=== PATIENT | female | born 1960 ===

== ENCOUNTER 2017-02-19 19:40 | Emergency (ER) | payer OTHER ==
--- NOTE | 2017-02-19 20:13 | ED ORDER SUMMARY ---
..... Patient: JAYMIE KNOTT OrderSheet [facility] VisitID: [id number] [address] [place] [address] 56y, F Registration Date/Time: 02/19/2017 ORDER SHEET Weight: 113.3 kg (stated) Allergies: Codeine, NSAIDs, Latex GENERAL ORDERS: MEDICATION ORDERS: Benadryl PO 50 mg (NOW) (20:00 02/19/2017 [facility]) (20:09 DDavis R.N.) Imodium PO 2 mg (NOW) (20:00 02/19/2017 [facility]) (20:10 DDavis R.N.) Zofran ODT PO 4 mg (NOW) (20:00 02/19/2017 [facility]) (20:10 DDavis R.N.) IV FLUIDS: ORDER SHEET NOTES: [Electronically signed by Rom Ramos R.N. (20:40 02/19/2017)] [Electronically signed by Vipin Monae DO (20:53 02/19/2017)] [Electronically locked/signed by Rom Ramos R.N. (20:40 02/19/2017)]
--- NOTE | 2017-02-19 20:13 | ED NURSING NOTES ---
Clinical Report - Nurses [facility] [address] [place] [address] 02/19/2017 19:43 Patient: JAYMIE KNOTT TRIAGE Triage time 19:44. Acuity: LEVEL 3. Chief Complaint: POSSIBLE ALLERGIC REACTION. Alert. No acute distress. MAYRA COMA SCORE: [place] Coma Scale: 15- eyes open spontaneously (4); best verbal response- oriented x 4 (5); best motor response- obeys commands (6). --19:51 Rom Ramos R.N. 19:44 02/19/17. BP: 163/82. HR: 98. RR: 19 (regular and unlabored). O2 saturation: 97%. Temp: 97.9 F (oral). Pain level now: 05/01. --19:51 Rom Ramos R.N. Weight: 113.3 kg stated. Height/Length: 60 inches Per Patient. BMI: 48.8. --19:43 Rom Ramos R.N. Medications Vitamin D3 Oral. --19:57 Rom Ramos R.N. Nortriptyline HCl Oral 10 mg, at bedtime. --19:57 Rom Ramos R.N. Gabapentin (PHN) Oral (Tablet 300 mg). --19:58 Rom Ramos R.N. Acyclovir Oral 400 mg. --19:58 Rom Ramos R.N. Ranitidine HCl Oral. --19:58 Rom Ramos R.N. Allergies Codeine. --19:48 Rom Ramos R.N. NSAIDs. --19:48 Rom Ramos R.N. Latex. --19:59 Rom Ramos R.N. The following entry was struck by Rom Ramos R.N., 19:59 (02/19/17) Reason - other(In error, patient is unsure). <<STRICKEN ENTRY-- IV Contrast. --19:49 Rom Ramos R.N. --END STRIKE>>. History Arrived by EMS. Historian: patient. Unaccompanied. This started today. Onset. (1530). ( "flushed face" with diarrhea and dry mouth after having a CT scan with oral contrast at 1500 today. Pt states having diarrhea "for months," but states that it increased today after the CT.). SELF HARM ASSESSMENT: A self harm assessment was performed. The patient answered "no" to the question "Have you recently felt down, depressed, or hopeless?", "Have you noticed less interest or pleasure in doing things?", "Do you have thoughts of harming or killing yourself?", "Are you here because you tried to hurt yourself?", "Have you ever tried to hurt yourself before today?" and "Have you recently had thoughts about harming or killing others?". FALL RISK ASSESSMENT: Fall risk assessment completed. No fall risk identified. Fall risk assessment completed. Fall interventions initiated. Patient placed on stretcher. Side rails up x1. Brakes on Bed in low position. Patient visible from nurses' station. Call light in reach of patient. NUTRITIONAL RISK ASSESSMENT: The nutritional risk assessment revealed no deficiencies. LEARNING NEEDS ASSESSMENT: The learning needs assessment revealed no barriers. FUNCTIONAL ASSESSMENT: Functional assessment performed: independent with the activities of daily living. SKIN INTEGRITY ASSESSMENT: Skin integrity risk assessment completed. No skin integrity risk identified. --19:51 Rom Ramos R.N. SOCIAL HX: Never smoker. No alcohol use or drug use. --19:51 Rom Ramos R.N. PROBLEMS: Hernia. --19:49 Rom Ramos R.N. Herpes Simplex. Herpes Genitalis. Fibromyalgia. Irritable Bowel Syndrome. --19:56 Rom Ramos R.N. Gastroesophageal Reflux. --20:00 Rom Ramos R.N. The following entry was modified by Rom Ramos R.N., 19:56 Reason - pt denies <<STRICKEN ENTRY-- Hypertension. --19:49 Rom Ramos R.N. --END STRIKE>>. ADDITIONAL SURGERIES: Colonoscopy. Esophagogastroduodenoscopy. --19:56 Rom Ramos R.N. Interventions ID and allergy band on patient. To treatment room. --19:51 Rom Ramos R.N. PHYSICAL ASSESSMENT GENERAL / NEURO / PSYCH: Alert. The patient does not appear to be in acute distress. Oriented X 4. HEENT: Mucous membranes are pink. RESPIRATORY: Respirations not labored. CVS: Capillary refill less than 2 seconds. SKIN: Skin is intact, warm and dry. No skin rash. --19:51 Rom Ramos R.N. RESPIRATORY: ( Airway patent and no respiratory distress at this time). --19:52 Rom Ramos R.N. ( Patient has no adverse reaction from medications received at this time. Patient's present at bedside and he states that he is driving the patient home.). GENERAL / NEURO / PSYCH: Alert. The patient does not appear to be in acute distress. Oriented X 4. HEENT: Mucous membranes are pink. RESPIRATORY: Respirations not labored. CVS: Capillary refill less than 2 seconds. --20:39 Rom Ramos R.N. NURSING PROGRESS NOTES Patient gowned. Head of bed elevated. Reassurance given. Two patient identifiers checked. Call light placed in reach. Side rails up x 1. Bed placed in lowest position. Brakes of bed on. Patient ready for evaluation- chart flagged. Patient waiting for evaluation. --19:52 Rom Ramos R.N. 20:09 02/19/2017 Benadryl (DiphenhydrAMINE HCl) PO Capsules 50 mg given. Allergies verified, confirmed 5 rights and sedative warning given to the patient. --20:09 Rom Ramos R.N. 20:10 02/19/2017 Imodium (Loperamide HCl) PO Capsules 2 mg given. Allergies verified and confirmed 5 rights. --20:10 Rom Ramos R.N. 20:10 02/19/2017 Zofran ODT (Ondansetron) PO Oral Disintegrating Tablets 4 mg given. Allergies verified and confirmed 5 rights. --20:10 Rom Ramos R.N. DISPOSITION / DISCHARGE Departure time: 20:39. Condition at departure: stable. No learning barriers present. Discharge instructions provided and reviewed with the patient and spouse. Reviewed warnings. Reviewed medication(s) side effects, precautions and course information. Treatments reviewed. Reviewed referrals for followup. Patient and spouse verbalized understanding. Written instructions provided in Indonesian. The patient was discharged home and accompanied by spouse. She left the Emergency Department ambulatory and via private vehicle. Spouse driving. --20:40 Rom Ramos R.N. 20:39 02/19/17. HR: 90 (regular). RR: 19 (regular and unlabored). O2 saturation: 94% on room air. --20:40 Rom Ramos R.N. Locked/Released at 02/19/2017 20:40 by Rom Ramos R.N.
--- NOTE | 2017-02-19 20:13 | ED CLINICAL REPORT ---
Clinical Report - Physicians/Mid Levels [facility] [address] [place] [address] 02/19/2017 19:43 Patient: JAYMIE KNOTT Time Seen: 19:46. Arrived- By ambulance. Historian- patient and EMS personnel. HISTORY OF PRESENT ILLNESS Chief Complaint: ALLERGIC REACTION. Diarrhea. No skin rash, difficulty breathing, dizziness or fainting episodes. She has not had itching, swelling or trouble swallowing. This started just prior to arrival and is still present. It was gradual in onset and has been waxing/waning. A cause has been identified (Pt had CT with oral and no IV contrast today). The patient was assessed by EMS prior to arrival. No treatment prior to arrival. (Pt had diarrhea episodes following CT abd / pelvis with po contrast that was performed at [facility] this evening. She has longstanding diarrheal episodes which are felt to be secondary to IBS; Has GI specialist with recent scopes and two surgeons and pcp who have been following her for this; CT abd / pelvis with po contrast done today for this). Similar symptoms previously: Many times. Recent medical care: The patient was seen recently in a clinic. REVIEW OF SYSTEMS No eye problems, sore throat, sputum production, fever or headache. No weakness, numbness, chest pain, palpitations or abdominal pain. No vomiting, black stools, urinary frequency, pain with urination or bloody stools. The patient has had a moderate cough (for several weeks). No blood tinged sputum or change in baseline sputum. It has been similar to previous symptoms. She has had diarrhea. This has occurred several times. It has been watery. No bloody diarrhea. She has had mild nausea. All systems otherwise negative, except as recorded above. PAST HISTORY Asthma. Irritable bowel syndrome. Gastroesophageal reflux. Diarrhea (chronic and intermittent - felt to be secondary to IBS; Has GI specialist with recent scopes and two surgeons and pcp who have been following her for this; CT abd / pelvis with po contrast done today for this). Herpes labialis. Obesity. Surgeries: Colonoscopy. Endoscopy. SOCIAL HISTORY Never smoker. No alcohol use or drug use. ADDITIONAL NOTES The nursing notes have been reviewed. PHYSICAL EXAM Vital Signs: 02/19/2017 19:44 BP: 163/82. HR: 98. RR: 19. O2 saturation: 97%. Temp: 97.9 F. Pain level now: 6/10. Appearance: Alert. Oriented X3. No acute distress. Head and Neck: Normal external inspection. Head: No facial angioedema. Eyes: Pupils equal, round and reactive to light. ENT: Pharynx normal. Voice normal. No muffled or hoarse voice or drooling. Neck: Neck supple. CVS: Normal heart rate and rhythm. Heart sounds normal. Respiratory: No respiratory distress. Breath sounds normal. Abdomen: Nontender. No organomegaly. Obese. Skin: Skin warm and dry. Normal skin turgor. No erythema. Extremities: Normal external inspection. Extremities nontender. Skin: Normal skin color. No rash. No urticaria. No urticaria. Neuro: Oriented X 3. No motor deficit. LABS, X-RAYS, AND EKG Pulse Oximetry: 02/19/2017 19:44 O2 saturation: 97%. (FIO2 - room air). Interpretation: normal. PROGRESS AND PROCEDURES Course of Care: Imodium 2 mg PO given. Benadryl 50 mg PO given. Doubt allergy. Pt has chronic diarrhea which was exacerbated by barium po contrast. Extensive work up for this in the past (both recent and remote). Patient/family counseled. Disposition: Discharged. Condition: stable and improved. CLINICAL IMPRESSION Essential hypertension. Morbid obesity (BMI >=40) due to excess calories. INSTRUCTIONS Do not work for three days. Warnings: Further evaluation is necessary. It is very important to follow up with a physician. SEDATIVE MEDICATION: You were given sedative medication during your visit. Do not drive or operate dangerous machinery. GENERAL WARNINGS: Return or contact your physician immediately if your condition worsens or changes unexpectedly, if not improving as expected, or if other problems arise. Your Current Medications: CONTINUE TAKING THE FOLLOWING MEDICATIONS: Acyclovir Oral : 400 mg. Gabapentin (PHN) Oral : Tablet 300 mg. Nortriptyline HCl Oral : 10 mg at bedtime. Ranitidine HCl Oral. Vitamin D3 Oral. OTC Medications: Imodium (available over the counter): take according to label instructions. Follow-up: Follow up with your doctor in two days. Screening today revealed the patient's blood pressure to be in the hypertensive range. The patient should follow up with a primary care provider for blood pressure management. (Electronically signed by Vipin Monae DO 02/19/2017 20:53)
--- NOTE | 2017-02-19 20:13 | ED ORDER SUMMARY ---
..... Patient: JAYMIE KNOTT OrderSheet [facility] VisitID: [id number] [address] [place] [address] 56y, F Registration Date/Time: 02/19/2017 ORDER SHEET Weight: 113.3 kg (stated) Allergies: Codeine, NSAIDs, Latex GENERAL ORDERS: MEDICATION ORDERS: Benadryl PO 50 mg (NOW) (20:00 02/19/2017 [facility]) (20:09 DDavis R.N.) Imodium PO 2 mg (NOW) (20:00 02/19/2017 [facility]) (20:10 DDavis R.N.) Zofran ODT PO 4 mg (NOW) (20:00 02/19/2017 [facility]) (20:10 DDavis R.N.) IV FLUIDS: ORDER SHEET NOTES: [Electronically signed by Rom Ramos R.N. (20:40 02/19/2017)] [Electronically signed by Vipin Monae DO (20:53 02/19/2017)] [Electronically locked/signed by Rom Ramos R.N. (20:40 02/19/2017)]
--- NOTE | 2017-02-19 20:53 | ED MED RECONCILIATION SUMMARY ---
Patient: JAYMIE KNOTT Medication Reconciliation Report [facility] VisitID: [id number] [address] [place] [address] 56y, F Registration Date/Time: 02/19/2017 Weight: 113.3 kg Height/Length: 60 in. BMI: 48.8 ALLERGIES: Codeine, Latex, NSAIDs The patient's Home Medications are listed below: CONTINUE TAKING THE FOLLOWING MEDICATIONS: Acyclovir Oral 400 mg Gabapentin (PHN) Oral (300 mg) Nortriptyline HCl Oral 10 mg, at bedtime Ranitidine HCl Oral Vitamin D3 Oral The source(s) of the original Home Medication information: Not obtained. The following Medications were given to the patient in the Emergency Department: Benadryl [PO] PO 50 mg, administered: 02/19/2017 8:09:00 PM Imodium [PO] PO 2 mg, administered: 02/19/2017 8:10:00 PM Zofran ODT [PO] PO 4 mg, administered: 02/19/2017 8:10:00 PM The following Medications were prescribed to the patient: Imodium (available over the counter): take according to label instructions. -- Vipin Monae DO
--- NOTE | 2017-02-19 20:53 | ED MAR SUMMARY ---
..... Medication Administration Record [facility] [address] [place] [address] Patient: JAYMIE KNOTT Visit ID: [id number] 56y, F Weight: 113.3 kg Height/Length: 60 in BMI: 48.8 ALLERGIES: NSAIDs, Codeine, Latex Given 20:02/19/2017 Rom Ramos R.N. Medication Administered: BENADRYL [PO] (DIPHENHYDRAMINE HCL), Dose: 50 mg Capsules PO. Medication Ordered: Benadryl PO 50 mg (NOW). Given 20:02/19/2017 Rom Ramos R.N. Medication Administered: IMODIUM [PO] (LOPERAMIDE HCL), Dose: 2 mg Capsules PO. Medication Ordered: Imodium PO 2 mg (NOW). Given 20:02/19/2017 Rom Ramos R.N. Medication Administered: ZOFRAN ODT [PO] (ONDANSETRON), Dose: 4 mg Oral Disintegrating Tablets PO. Medication Ordered: Zofran ODT PO 4 mg (NOW).
--- NOTE | 2017-02-19 20:53 | ED MAR SUMMARY ---
..... Medication Administration Record [facility] [address] [place] [address] Patient: JAYMIE KNOTT Visit ID: [id number] 56y, F Weight: 113.3 kg Height/Length: 60 in BMI: 48.8 ALLERGIES: NSAIDs, Codeine, Latex Given 20:02/19/2017 Rom Ramos R.N. Medication Administered: BENADRYL [PO] (DIPHENHYDRAMINE HCL), Dose: 50 mg Capsules PO. Medication Ordered: Benadryl PO 50 mg (NOW). Given 20:02/19/2017 Rom Ramos R.N. Medication Administered: IMODIUM [PO] (LOPERAMIDE HCL), Dose: 2 mg Capsules PO. Medication Ordered: Imodium PO 2 mg (NOW). Given 20:02/19/2017 Rom Ramos R.N. Medication Administered: ZOFRAN ODT [PO] (ONDANSETRON), Dose: 4 mg Oral Disintegrating Tablets PO. Medication Ordered: Zofran ODT PO 4 mg (NOW).
--- NOTE | 2017-02-19 20:53 | ED MED RECONCILIATION SUMMARY ---
Patient: JAYMIE KNOTT Medication Reconciliation Report [facility] VisitID: [id number] [address] [place] [address] 56y, F Registration Date/Time: 02/19/2017 Weight: 113.3 kg Height/Length: 60 in. BMI: 48.8 ALLERGIES: Codeine, Latex, NSAIDs The patient's Home Medications are listed below: CONTINUE TAKING THE FOLLOWING MEDICATIONS: Acyclovir Oral 400 mg Gabapentin (PHN) Oral (300 mg) Nortriptyline HCl Oral 10 mg, at bedtime Ranitidine HCl Oral Vitamin D3 Oral The source(s) of the original Home Medication information: Not obtained. The following Medications were given to the patient in the Emergency Department: Benadryl [PO] PO 50 mg, administered: 02/19/2017 8:09:00 PM Imodium [PO] PO 2 mg, administered: 02/19/2017 8:10:00 PM Zofran ODT [PO] PO 4 mg, administered: 02/19/2017 8:10:00 PM The following Medications were prescribed to the patient: Imodium (available over the counter): take according to label instructions. -- Vipin Monae DO
--- NOTE | 2017-02-19 20:53 | ED DISCHARGE INSTRUCTIONS ---
Patient: JAYMIE KNOTT General Instructions [facility] VisitID: [id number] [place] [address] 56y, F Registration Date/Time: 02/19/2017 Essential hypertension. Morbid obesity (BMI >=40) due to excess calories. INSTRUCTIONS Do not work for three days. Warnings: Further evaluation is necessary. It is very important to follow up with a physician. SEDATIVE MEDICATION: You were given sedative medication during your visit. Do not drive or operate dangerous machinery. GENERAL WARNINGS: Return or contact your physician immediately if your condition worsens or changes unexpectedly, if not improving as expected, or if other problems arise. Your Current Medications: CONTINUE TAKING THE FOLLOWING MEDICATIONS: Acyclovir Oral : 400 mg. Gabapentin (PHN) Oral : Tablet 300 mg. Nortriptyline HCl Oral : 10 mg at bedtime. Ranitidine HCl Oral. Vitamin D3 Oral. OTC Medications: Imodium (available over the counter): take according to label instructions. Follow-up: Follow up with your doctor in two days. Screening today revealed the patient's blood pressure to be in the hypertensive range. The patient should follow up with a primary care provider for blood pressure management. ADDITIONAL INFORMATION High Blood Pressure -- To Be Confirmed [No Tx] Your blood pressure was higher today than normal. Sometimes anxiety or pain can cause a temporary rise in blood pressure that later returns to normal. If your blood pressure is high on one measurement, this does not mean that you have hypertension (a chronic illness). However, you must have your blood pressure measured again within the next few days to find out if its still high. A normal blood pressure is 120/80 or less. The first (top) number is the "systolic" pressure. The second (bottom) number is the "diastolic" pressure. Hypertension exists when either the top number is 140 or higher, OR the bottom number is 90 or higher on repeated measurements. Blood pressure in the range of 120-140 (systolic) or 80-89 (diastolic) is considered "pre-hypertension". This means your are at risk for getting hypertension. You should have regular blood pressure checks to be sure your blood pressure is not rising. Home Care: Measure your blood pressure on 3 different days and write down the results. This can be done at your doctor's office or this facility. Some pharmacies and grocery stores offer automated blood pressure machines for your use. Follow Up: If your blood pressure is "high" (over 120/80) on 2 out of 3 days, you will need to follow up with your doctor for further evaluation and treatment. DO NOT PUT THIS OFF! Untreated high blood pressure increases the risk for heart attack, also known as acute myocardial infarction, or AMI, and stroke. It is a treatable condition. Get Prompt Medical Attention if any of the following occur: Chest pain or shortness of breath Severe headache Throbbing or rushing sound in the ears Nosebleed Sudden severe abdominal pain Extreme drowsiness, confusion or fainting Dizziness or vertigo (dizziness with spinning sensation) Weakness of an arm or leg or one side of the face Difficulty with speech or vision Loperamide Oral tablet What is this medicine? LOPERAMIDE (gloria PER a mide) is used to treat diarrhea. How should I use this medicine? Take this medicine by mouth with a glass of water. Follow the directions on the prescription label. Take your doses at regular intervals. Do not take your medicine more often than directed. Talk to your director call regarding the use of this medicine in children. Special care may be needed. What side effects may I notice from receiving this medicine? Side effects that you should report to your doctor or health pet care worker as soon as possible: allergic reactions like skin rash, itching or hives, swelling of the face, lips, or tongue bloated, swollen feeling in your abdomen blurred vision loss of appetite stomach pain Side effects that usually do not require medical attention (report to your doctor or health pet care worker if they continue or are bothersome): constipation drowsiness or dizziness dry mouth nausea, vomiting What may interact with this medicine? Do not take this medicine with any of the following medications: alosetron This medicine may also interact with the following medications: quinidine ritonavir saquinavir What if I miss a dose? This does not apply. This medicine is not for regular use. Only take this medicine while you continue to have loose bowel movements. Do not take more medicine than recommended by the packaging label or by your healthcare professional. Where should I keep my medicine? Keep out of the reach of children. Store at room temperature between 15 and 25 degrees C (59 and 77 degrees F). Keep container tightly closed. Throw away any unused medicine after the expiration date. What should I tell my health care provider before I take this medicine? They need to know if you have any of these conditions: a black or bloody stool bacterial food poisoning colitis or mucus in your stool currently taking an antibiotic medication for an infection fever liver disease severe abdominal pain, swelling or bulging an unusual or allergic reaction to loperamide, other medicines, foods, dyes, or preservatives or trying to get breast-feeding What should I watch for while using this medicine? Do not take this medicine for more than 1 week without asking your doctor or health pet care worker. If your symptoms do not start to get better after two days, you may have a problem that needs further evaluation. Check with your doctor or health pet care worker right away if you develop a fever, severe abdominal pain, swelling or bulging, or if you have have bloody/black diarrhea or stools. You may get drowsy or dizzy. Do not drive, use machinery, or do anything that needs mental alertness until you know how this medicine affects you. Do not stand or sit up quickly, especially if you are an older patient. This reduces the risk of dizzy or fainting spells. Alcohol can increase possible drowsiness and dizziness. Avoid alcoholic drinks. Your mouth may get dry. Chewing sugarless gum or sucking hard candy, and drinking plenty of water may help. Contact your doctor if the problem does not go away or is severe. Drinking plenty of water can also help prevent dehydration that can occur with diarrhea. Elderly patients may have a more variable response to the effects of this medicine, and are more susceptible to the effects of dehydration. You have been given the following additional information: Hypertension, To Be Confirmed Loperamide Oral tablet Do not work for three days. (Electronically signed by Vipin Monae DO 02/19/2017 20:53)
--- NOTE | 2017-02-19 20:53 | ED DISCHARGE INSTRUCTIONS ---
Patient: JAYMIE KNOTT General Instructions [facility] VisitID: [id number] [place] [address] 56y, F Registration Date/Time: 02/19/2017 Essential hypertension. Morbid obesity (BMI >=40) due to excess calories. INSTRUCTIONS Do not work for three days. Warnings: Further evaluation is necessary. It is very important to follow up with a physician. SEDATIVE MEDICATION: You were given sedative medication during your visit. Do not drive or operate dangerous machinery. GENERAL WARNINGS: Return or contact your physician immediately if your condition worsens or changes unexpectedly, if not improving as expected, or if other problems arise. Your Current Medications: CONTINUE TAKING THE FOLLOWING MEDICATIONS: Acyclovir Oral : 400 mg. Gabapentin (PHN) Oral : Tablet 300 mg. Nortriptyline HCl Oral : 10 mg at bedtime. Ranitidine HCl Oral. Vitamin D3 Oral. OTC Medications: Imodium (available over the counter): take according to label instructions. Follow-up: Follow up with your doctor in two days. Screening today revealed the patient's blood pressure to be in the hypertensive range. The patient should follow up with a primary care provider for blood pressure management. ADDITIONAL INFORMATION High Blood Pressure -- To Be Confirmed [No Tx] Your blood pressure was higher today than normal. Sometimes anxiety or pain can cause a temporary rise in blood pressure that later returns to normal. If your blood pressure is high on one measurement, this does not mean that you have hypertension (a chronic illness). However, you must have your blood pressure measured again within the next few days to find out if its still high. A normal blood pressure is 120/80 or less. The first (top) number is the "systolic" pressure. The second (bottom) number is the "diastolic" pressure. Hypertension exists when either the top number is 140 or higher, OR the bottom number is 90 or higher on repeated measurements. Blood pressure in the range of 120-140 (systolic) or 80-89 (diastolic) is considered "pre-hypertension". This means your are at risk for getting hypertension. You should have regular blood pressure checks to be sure your blood pressure is not rising. Home Care: Measure your blood pressure on 3 different days and write down the results. This can be done at your doctor's office or this facility. Some pharmacies and grocery stores offer automated blood pressure machines for your use. Follow Up: If your blood pressure is "high" (over 120/80) on 2 out of 3 days, you will need to follow up with your doctor for further evaluation and treatment. DO NOT PUT THIS OFF! Untreated high blood pressure increases the risk for heart attack, also known as acute myocardial infarction, or AMI, and stroke. It is a treatable condition. Get Prompt Medical Attention if any of the following occur: Chest pain or shortness of breath Severe headache Throbbing or rushing sound in the ears Nosebleed Sudden severe abdominal pain Extreme drowsiness, confusion or fainting Dizziness or vertigo (dizziness with spinning sensation) Weakness of an arm or leg or one side of the face Difficulty with speech or vision Loperamide Oral tablet What is this medicine? LOPERAMIDE (gloria PER a mide) is used to treat diarrhea. How should I use this medicine? Take this medicine by mouth with a glass of water. Follow the directions on the prescription label. Take your doses at regular intervals. Do not take your medicine more often than directed. Talk to your orange picker machine operator regarding the use of this medicine in children. Special care may be needed. What side effects may I notice from receiving this medicine? Side effects that you should report to your doctor or health care aid as soon as possible: allergic reactions like skin rash, itching or hives, swelling of the face, lips, or tongue bloated, swollen feeling in your abdomen blurred vision loss of appetite stomach pain Side effects that usually do not require medical attention (report to your doctor or health care aid if they continue or are bothersome): constipation drowsiness or dizziness dry mouth nausea, vomiting What may interact with this medicine? Do not take this medicine with any of the following medications: alosetron This medicine may also interact with the following medications: quinidine ritonavir saquinavir What if I miss a dose? This does not apply. This medicine is not for regular use. Only take this medicine while you continue to have loose bowel movements. Do not take more medicine than recommended by the packaging label or by your healthcare professional. Where should I keep my medicine? Keep out of the reach of children. Store at room temperature between 15 and 25 degrees C (59 and 77 degrees F). Keep container tightly closed. Throw away any unused medicine after the expiration date. What should I tell my health care provider before I take this medicine? They need to know if you have any of these conditions: a black or bloody stool bacterial food poisoning colitis or mucus in your stool currently taking an antibiotic medication for an infection fever liver disease severe abdominal pain, swelling or bulging an unusual or allergic reaction to loperamide, other medicines, foods, dyes, or preservatives or trying to get breast-feeding What should I watch for while using this medicine? Do not take this medicine for more than 1 week without asking your doctor or health care aid. If your symptoms do not start to get better after two days, you may have a problem that needs further evaluation. Check with your doctor or health care aid right away if you develop a fever, severe abdominal pain, swelling or bulging, or if you have have bloody/black diarrhea or stools. You may get drowsy or dizzy. Do not drive, use machinery, or do anything that needs mental alertness until you know how this medicine affects you. Do not stand or sit up quickly, especially if you are an older patient. This reduces the risk of dizzy or fainting spells. Alcohol can increase possible drowsiness and dizziness. Avoid alcoholic drinks. Your mouth may get dry. Chewing sugarless gum or sucking hard candy, and drinking plenty of water may help. Contact your doctor if the problem does not go away or is severe. Drinking plenty of water can also help prevent dehydration that can occur with diarrhea. Elderly patients may have a more variable response to the effects of this medicine, and are more susceptible to the effects of dehydration. You have been given the following additional information: Hypertension, To Be Confirmed Loperamide Oral tablet Do not work for three days. (Electronically signed by Vipin Monae DO 02/19/2017 20:53)
== END 2017-02-19 20:40 | disposition home or self-care (01) ==
LOC: ED SRH 19:40
DX: K52.1 Toxic gastroenteritis and colitis (principal); T50.8X5A Adverse effect of diagnostic agents, initial encounter; Y92.238 Other place in hospital as the place of occurrence of the external cause; R19.7 Diarrhea, unspecified; I10 Essential (primary) hypertension; E66.01 Morbid (severe) obesity due to excess calories; Z68.42 Body mass index [BMI] 45.0-49.9, adult; K21.9 Gastro-esophageal reflux disease without esophagitis